=== PATIENT | male | born 1970 | race Caucasian/White ===

== ENCOUNTER 2018-06-11 07:27 | Day surgery (SDC) | payer MEDICAID ==
[~2018-06-11] VITALS: Ht 170.2 cm; Wt 58.1 kg
[~2018-06-11 07:27] MED LIST: ALBUTEROL SULF8.5 GM INH; ANORO ELLIPTA1 EACH INH; FLUTICASONE PRO16 GM NASAL
[2018-06-11 07:52] LABS: HEMATOCRIT 43.8 % (42.0-54.0); HEMOGLOBIN 14.5 g/dL (13.5-17.5); MCH 32.6 pg (26.0-34.0); MCHC 33.1 g/dL (31.0-37.0); MCV 98.4 fL (80.0-100.0); MEAN PLATELET VOLUME 10.9 fL (7.4-10.4); RBC 4.45 10x6/uL (4.20-6.10); RDW 13.3 % (11.5-14.5); WBC 5.7 10x3/uL (4.8-10.8)
[2018-06-11 08:06] LABS: APTT 28.9 SECONDS (22.8-39.4); INR 0.97 (0.85-1.17); PROTIME 12.4 SECONDS (11.6-15.0)
[2018-06-11 08:10] LABS: ALBUMIN 3.5 g/dL (3.4-5.0); ALKALINE PHOSPHATASE 71 U/L (46-116); ALT (SGPT) 49 U/L (10-68); BILIRUBIN - TOTAL 0.37 mg/dL (0.2-1.3); CALC OSMOLALITY 283 mosm/kg (275-300); CALCIUM 8.7 mg/dL (8.5-10.1); CARBON DIOXIDE 26.9 mmol/L (21.0-32.0); CHLORIDE - SERUM 107 mmol/L (98-107); CREATININE - SERUM 0.8 mg/dL (0.6-1.3); GLUCOSE 107 mg/dL (74-106); POTASSIUM - SERUM 4.6 mmol/L (3.5-5.1); PROTEIN - SERUM 6.9 g/dL (6.4-8.2); SODIUM 143 mmol/L (136-145); UREA NITROGEN 9 mg/dL (7-18); eGFR NON AFRICAN AMERICAN > 90 mL/min (90-120)
[2018-06-11 08:28] VITALS: BP 113/67; Ht 170.2 cm; Wt 58.1 kg
--- NOTE | 2018-06-11 11:13 | NUR ---
1110: UNABLE TO REACH FAMILY EXT [id number]
[2018-06-11] MEDS ORDERED: FLOMAX0.4 MG PO (11:57)
[2018-06-11] MEDS ORDERED: FUROSEMIDE20 MG PO (11:57)
[2018-06-11] MEDS ORDERED: HYDROCODON-ACE1 EAC7 PO (11:57)
[2018-06-11] MEDS ORDERED: MIRALAX17 GM PO (11:58)
--- NOTE | 2018-06-11 13:03 | NUR ---
1255 ICE PROVIDED TO ABDOMEN.
== END 2018-06-11 16:40 | disposition home or self-care (01) ==
LOC: D.OPS 07:27 → D.PAN 10:15 → D.OPS 10:15
PROVIDERS: Anesthesiology; ATTEND Surgery
DX: K40.20 Bilateral inguinal hernia, without obstruction or gangrene, not specified as recurrent (principal); J44.9 Chronic obstructive pulmonary disease, unspecified; F17.200 Nicotine dependence, unspecified, uncomplicated; Z01.812 Encounter for preprocedural laboratory examination

== ENCOUNTER 2019-03-20 14:15 | Inpatient (IN) | payer OTHER ==
[~2019-03-20] VITALS: Ht 175.3 cm; Wt 59.0 kg
[~2019-03-20 14:15] MED LIST changes: +FLOMAX0.4 MG PO; +FUROSEMIDE20 MG PO; +HYDROCODON-ACE1 EAC7 PO; +MIRALAX17 GM PO
[2019-03-20] MEDS ORDERED: MEDROL4 MG PO (14:28)
[2019-03-20] MEDS ORDERED: UNK ABX PO (14:29)
--- NOTE | 2019-03-20 14:57 | NUR ---
BLOOD TO LAB
[2019-03-20 15:18] LABS: INR 1.01 (0.85-1.17); PROTIME 12.8 SECONDS (11.6-15.0)
[2019-03-20 15:20] LABS: CALC OSMOLALITY 287 mosm/kg (275-300); CALCIUM 9.1 mg/dL (8.5-10.1); CARBON DIOXIDE 28.9 mmol/L (21.0-32.0); CHLORIDE - SERUM 103 mmol/L (98-107); GLUCOSE 141 mg/dL (74-106); POTASSIUM - SERUM 3.5 mmol/L (3.5-5.1); SODIUM 142 mmol/L (136-145); UREA NITROGEN 22 mg/dL (7-18); eGFR NON AFRICAN AMERICAN 84 mL/min (90-120)
[2019-03-20 15:23] LABS: BASOPHILS 0 % (0-2); EOSINOPHILS 0.2 % (0-7); HEMOGLOBIN 14.4 g/dL (13.5-17.5); IMMATURE GRANULOCYTES 0.2 % (0-5); LYMPHOCYTES 18.7 % (15-50); MCH 33.4 pg (26.0-34.0); MCHC 34.3 g/dL (31.0-37.0); MCV 97.4 fL (80.0-100.0); MEAN PLATELET VOLUME 10.7 fL (7.4-10.4); MONOCYTES 5.4 % (2-11); NEUTROPHILS 75.5 % (40-80); RBC 4.31 10x6/uL (4.20-6.10); RDW 13.6 % (11.5-14.5)
[2019-03-20 15:24] LABS: PLATELET COUNT 220 10x3/uL (130-400)
[2019-03-20 15:36] LABS: ALBUMIN 3.6 g/dL (3.4-5.0); ALKALINE PHOSPHATASE 65 U/L (46-116); ALT (SGPT) 45 U/L (10-68); BILIRUBIN - TOTAL 0.38 mg/dL (0.2-1.3); CKMB 7.4 U/L (0.0-3.6); CREATINE KINASE 297 UL (21-232); PRO BNP 54 pg/mL (0-125); PROTEIN - SERUM 7.3 g/dL (6.4-8.2)
[2019-03-20 15:37] LABS: TROPONIN-I < 0.017 ng/mL (0.000-0.060)
--- NOTE | 2019-03-20 16:42 | NUR ---
WAITING ON BLOOD CULTURES TO START ANTIBIOTICS. PT GETTING ANOTHER RT TX AT THIS TIME.
[2019-03-20] MEDS ORDERED: ZOLOFT50 MG PO (18:29)
[2019-03-20] MEDS ORDERED: WELLBUTRIN SR150 MG PO (18:29)
--- NOTE | 2019-03-20 18:35 | NUR ---
REC'D TO ROOM 2233 AWAKE AND ALERT. RESP EVEN AND UNLABORED WITH NO DISTRESS NOTED. CANE EXPRESS NEEDS AND WANTS. NO C/O NOTED OR VOICE. TURN AND REPOSITION SELF AB KI. IV NOTED TO L FA WHICH IS SL. C/L IN REACH AT BEDSIDE.
--- NOTE | 2019-03-20 19:49 | MORECARE ---
CASE MANAGEMENT DISCHARGE SUMMARY PATIENT: JUDY FOLEY UNIT: [id number] ADM DATE: 03/20/19 AGE: 48 : 68 SEX: M ROOM/BED: D.2233 AUTHOR: FINADOC PHYSICIAN: REFERRING PHYSICIAN: ALBER FLORES MD DATE OF SERVICE: 03/20/19 Discharge Plan Patient Name: JUDY FOLEY Facility: [facility]:[place] : 1970 Planned Disposition: Home Anticipated Discharge Date: 03/23/19 Discharge Date: Expected LOS: 3 Initial Reviewer: [email or web address] Initial Review Date: 03/20/2019 Generated: 03/20/19 8:48 pm DCP- Discharge Planning Updated by [email or web address]: Felicia Dewitt on 03/20/19 6:[address] DC PLAN: Return home with friends. Denied known dc needs. ANTICIPATED DC NEEDS: CM met with patient to complete initial dc planning assessment. CM educated patient on the CM role and verbal consent given by patient to complete assessment. CM verified patient's address, phone number, and emergency contact phone numbers. Patient lives at home with friends. At discharge patient plans to return home and feels this is a safe discharge. CM discussed availability of home health, rehab services, and medical equipment. Patient denied known discharge needs at this time. Transportation provider at discharge will be his boss. Patient does not have oxygen or nebulizer at home. CM will continue to follow and will assist as needed with dc plans/needs. DCPIA - Discharge Planning Initial Assessment Updated by [email or web address]: Felicia Dewitt on 03/20/19 7:44 pm * Is the patient Alert and Oriented? Yes * How many steps to enter\exit or inside your home? 15 * PCP Dr. Flores * Pharmacy [facility] on [address] * Preadmission Environment Home with Family * ADLs Independent * Equipment None * List name and contact numbers for known caregivers / representatives who currently or will assist patient after discharge: Enoch Venegas - brother - [phone] * Verbal permission to speak to the caregivers and representatives has been obtained from the patient. Yes * Community resources currently utilized None * Additional services required to return to the preadmission environment? No * Can the patient safely return to the preadmission environment? Yes * Has this patient been hospitalized within the prior 30 days at any hospital? No Patient Name: JUDY FOLEY Page [id number] at 1950 All edits/amendments must be made on the electronic document DICTATION DATE: 03/20/191947 PRIVATE MORTGAGE BANKER SAFE: LEONARD 03/20/191947 RPT#: [id number] DC DATE: STATUS: ADM IN [facility] [address] [place] [address] END OF REPORT
--- NOTE | 2019-03-20 20:45 | NUR ---
WATCHING TV QUEITLY WITH NO DISTRESS NOTED. O2 @ 2L PER NC ON . RESP UNLABORED. SL TO LFA INTACT WITHOUT REDNESS OR EDEMA NOTED. CL IN REACH
[2019-03-20 21:00] VITALS: BP 110/67
[2019-03-21] VITALS (7 sets, daily range): BP systolic 110–150; BP diastolic 50–84; Ht 175.3 cm; Wt 59.0 kg
--- NOTE | 2019-03-21 07:25 | NUR ---
REC'D IN BED AWAKE AND ALERT. RESP EVEN AND UNLABORED WITH NO DISTRESS NOTED. CAN EXPRESS NEEDS AND WANTS. DENIES ANY NEEDS AT THIS TIME. CONTINUE TO HAVE O2 IN USE VIA N/C. ASSESSMENT COMPLETED. C/L IN REACH AT BEDSIDE.
--- NOTE | 2019-03-21 20:45 | NUR ---
LYING QUIELTY WITH NO COMPLAITNS VOICED. NO DISTRESS NOTED. O2 @ 4L PER NC ON. RESP UNALBORED. CL IN REACH
[2019-03-22 00:42] VITALS: BP 131/74
--- NOTE | 2019-03-22 02:59 | NUR ---
I have reviewed this patient and I concur with the Shift Assessment completed by the Licensed Practical Nurse today this shift.
--- NOTE | 2019-03-22 03:16 | NUR ---
I have reviewed this patient and I concur with the Shift Assessment completed by the Licensed Practical Nurse today this shift.
[2019-03-22 04:48] VITALS: BP 155/78
--- NOTE | 2019-03-22 07:50 | NUR ---
PT RESTING IN BED WITH EYES OPEN, ALERT AND ORIENTED. IV LOCATED TO LEFT FOREARM, CURRENTLY SL. NO S/S OF DISTRESS, AND DENIES NEEDS AT THIS TIME, WILL CONT TO MONITOR.
[2019-03-22 08:02] VITALS: BP 138/92
[2019-03-22 11:36] VITALS: BP 161/85
[2019-03-22 16:57] VITALS: BP 153/84
--- NOTE | 2019-03-22 19:00 | NUR ---
BEDSIDE REPORT RECEIVED AND CARE OF PT ASSUMED. PT LYING IN SUPINE POSITION WITH EYES CLOSED. IV TO LEFT FA PATENT WITH D51/2 NS @ 125 ML/HR. WILL MONITOR FOR NEEDS.
[2019-03-22 20:42] VITALS: BP 145/78
--- NOTE | 2019-03-22 20:45 | NUR ---
HS MEDICATIONS GIVEN. WILL CONTINUE TO MONITOR FOR NEEDS.
[2019-03-23 01:34] VITALS: BP 130/90
[2019-03-23 05:12] VITALS: BP 151/90
[2019-03-23 06:01] LABS: BASOPHILS 0 % (0-2); EOSINOPHILS 0 % (0-7); HEMATOCRIT 40.2 % (42.0-54.0); HEMOGLOBIN 13.5 g/dL (13.5-17.5); IMMATURE GRANULOCYTES 0.5 % (0-5); LYMPHOCYTES 5.5 % (15-50); MCH 33.3 pg (26.0-34.0); MCHC 33.6 g/dL (31.0-37.0); MONOCYTES 4.9 % (2-11); NEUTROPHILS 89.1 % (40-80); PLATELET COUNT 213 10x3/uL (130-400); RBC 4.06 10x6/uL (4.20-6.10); RDW 13.6 % (11.5-14.5); WBC 12.9 10x3/uL (4.8-10.8)
[2019-03-23 06:22] LABS: CALC OSMOLALITY 285 mosm/kg (275-300); CALCIUM 8.9 mg/dL (8.5-10.1); CARBON DIOXIDE 30.9 mmol/L (21.0-32.0); CHLORIDE - SERUM 104 mmol/L (98-107); CREATININE - SERUM 0.6 mg/dL (0.6-1.3); GLUCOSE 166 mg/dL (74-106); SODIUM 141 mmol/L (136-145); UREA NITROGEN 16 mg/dL (7-18); eGFR NON AFRICAN AMERICAN > 90 mL/min (90-120)
--- NOTE | 2019-03-23 07:25 | NUR ---
REC'D IN BED AWAKE AND ALERT. RESP EVEN AND UNLABORED HAS O2 IN USE VIA N/C @ 2L/M. NO C/O PAIN OR DISCOMFORT NOTED OR VOICED. ASSESSMENT COMPLETED. C/L IN REACH AT BEDSIDE.
[2019-03-23 07:44] VITALS: BP 139/80
[2019-03-23 11:52] VITALS: BP 121/79
--- NOTE | 2019-03-23 13:49 | NUR ---
I have reviewed this patient and I concur with the Shift Assessment completed by the Licensed Practical Nurse today this shift.
[2019-03-23 17:04] VITALS: BP 158/85
[2019-03-23 21:08] VITALS: BP 151/80
[2019-03-24 01:05] VITALS: BP 166/88
[2019-03-24 04:38] VITALS: BP 130/80
--- NOTE | 2019-03-24 07:17 | NUR ---
I have reviewed this patient and I concur with the Shift Assessment completed by the Licensed Practical Nurse today this shift.
--- NOTE | 2019-03-24 07:30 | NUR ---
REC'D IN ROOM IN BED AWAKE AND ALERT. RESP EVEN AND UNLABORED WITH NO DISTRESS NOTED. CAN EXPRESS NEEDS AND WANTS. NO C/O NOTED OR VOICED. ASSESSMENT COMPLETED. C/L IN REACH AT BEDSIDE.
[2019-03-24 08:37] VITALS: BP 165/97
--- NOTE | 2019-03-24 10:43 | NUR ---
I have reviewed this patient and I concur with the Shift Assessment completed by the Licensed Practical Nurse today this shift.
[2019-03-24 13:27] VITALS: BP 174/78
[2019-03-24] MEDS ORDERED: PULMICORT0.25 MG/1 INH (13:51)
[2019-03-24] MEDS ORDERED: Tessalon Perle PO (13:53)
[2019-03-24] MEDS ORDERED: MUCINEX600 MG PO (13:53)
[2019-03-24] MEDS ORDERED: SINGULAIR10 MG PO (13:53)
[2019-03-24] MEDS ORDERED: PREDNISONE20 MG PO (13:56)
--- NOTE | 2019-03-24 14:31 | NUR ---
Nutrition Follow-up: Diet: Cardiac 1500cal 2gm NA PO intake: 75-100% x all meals; he reports a good appetite. He likes strawberry and vanilla Ensure. No BM recorded since admit. WT: 130# (03/21/19) Significant meds: solu-medrol and IV abx. Labs noted: Glu 166mg/dL Consider liberalizing diet to Regular. RD following.
--- NOTE | 2019-03-24 14:52 | MORECARE ---
CASE MANAGEMENT DISCHARGE SUMMARY PATIENT: JUDY FOLEY UNIT: [id number] ADM DATE: 03/20/19 AGE: 48 : 68 SEX: M ROOM/BED: D.2233 AUTHOR: FINADOC PHYSICIAN: REFERRING PHYSICIAN: ALBER FLORES MD DATE OF SERVICE: 03/24/19 Discharge Plan Patient Name: JUDY FOLEY Facility: [facility]:[place] : 1970 Planned Disposition: Home Anticipated Discharge Date: 03/23/19 Discharge Date: Expected LOS: 3 Initial Reviewer: [email or web address] Initial Review Date: 03/20/2019 Generated: 03/24/19 3:52 pm Comments DCP- Discharge Planning Updated by [email or web address]: France Rojas on 03/24/19 1:[address] Discharge orders received. He states he has someone from "his program" picking him up. He has Rx that will need filled. I called his pharmacy and his prednisone has 0 copay. He is a managed Medicaid, so his medications should be covered by insurance. Managed Medicaid does not require "slots to be opened." DCP- Discharge Planning Updated by [email or web address]: Felicia Dewitt on 03/20/19 6:[address] DC PLAN: Return home with friends. Denied known dc needs. ANTICIPATED DC NEEDS: CM met with patient to complete initial dc planning assessment. CM educated patient on the CM role and verbal consent given by patient to complete assessment. CM verified patient's address, phone number, and emergency contact phone numbers. Patient lives at home with friends. At discharge patient plans to return home and feels this is a safe discharge. CM discussed availability of home health, rehab services, and medical equipment. Patient denied known discharge needs at this time. Transportation provider at discharge will be his boss. Patient does not have oxygen or nebulizer at home. CM will continue to follow and will assist as needed with dc plans/needs. DCPIA - Discharge Planning Initial Assessment Updated by [email or web address]: Felicia Dewitt on 03/20/19 7:44 pm * Is the patient Alert and Oriented? Yes * How many steps to enter\\exit or inside your home? 15 * PCP Dr. Flores * Pharmacy [facility] [address] * Preadmission Environment Home with Family * ADLs Independent * Equipment None * List name and contact numbers for known caregivers / representatives who currently or will assist patient after discharge: Enoch Venegas - brother - [phone] * Verbal permission to speak to the caregivers and representatives has been obtained from the patient. Yes * Community resources currently utilized None * Additional services required to return to the preadmission environment? No * Can the patient safely return to the preadmission environment? Yes * Has this patient been hospitalized within the prior 30 days at any hospital? No Last DP export: 03/20/19 6:49 p Patient Name: JUDY FOLEY Page [id number] at 1452 All edits/amendments must be made on the electronic document DICTATION DATE: 03/24/191451 RN INVASIVE: LEONARD 03/24/191451 RPT#: [id number] DC DATE: STATUS: ADM IN [facility] [address] [place] [address] END OF REPORT
--- NOTE | 2019-03-24 16:02 | NUR ---
DC HOME AT THIS TIME VOICE UNDERSTANDING OF DC INSTRUCTION. IV DC WITH TIP INTACT.
--- NOTE | 2019-03-25 16:28 | MORECARE ---
CASE MANAGEMENT DISCHARGE SUMMARY PATIENT: JUDY FOLEY UNIT: [id number] ADM DATE: 03/20/19 AGE: 48 : 68 SEX: M ROOM/BED: D.2233 AUTHOR: FINA,DOC PHYSICIAN: REFERRING PHYSICIAN: ALBER FLORES MD DATE OF SERVICE: 03/25/19 Discharge Plan Patient Name: JUDY FOLEY Facility: [facility]:[place] : 1970 Planned Disposition: Home Anticipated Discharge Date: 03/23/19 Discharge Date: 03/24/2019 Expected LOS: 3 Initial Reviewer: [email or web address] Initial Review Date: 03/20/2019 Generated: 03/25/19 5:28 pm Comments DCP- Discharge Planning Updated by [email or web address]: France Rojas on 03/24/19 1:[address] Discharge orders received. He states he has someone from "his program" picking him up. He has Rx that will need filled. I called his pharmacy and his prednisone has 0 copay. He is a managed Medicaid, so his medications should be covered by insurance. Managed Medicaid does not require "slots to be opened." DCP- Discharge Planning Updated by [email or web address]: Felicia Dewitt on 03/20/19 6:[address] DC PLAN: Return home with friends. Denied known dc needs. ANTICIPATED DC NEEDS: CM met with patient to complete initial dc planning assessment. CM educated patient on the CM role and verbal consent given by patient to complete assessment. CM verified patient's address, phone number, and emergency contact phone numbers. Patient lives at home with friends. At discharge patient plans to return home and feels this is a safe discharge. CM discussed availability of home health, rehab services, and medical equipment. Patient denied known discharge needs at this time. Transportation provider at discharge will be his boss. Patient does not have oxygen or nebulizer at home. CM will continue to follow and will assist as needed with dc plans/needs. DCPIA - Discharge Planning Initial Assessment Updated by [email or web address]: Felicia Dewitt on 03/20/19 7:44 pm * Is the patient Alert and Oriented? Yes * How many steps to enter\\exit or inside your home? 15 * PCP Dr. Flores * Pharmacy [facility] [address] * Preadmission Environment Home with Family * ADLs Independent * Equipment None * List name and contact numbers for known caregivers / representatives who currently or will assist patient after discharge: Enoch Venegas - brother - [phone] * Verbal permission to speak to the caregivers and representatives has been obtained from the patient. Yes * Community resources currently utilized None * Additional services required to return to the preadmission environment? No * Can the patient safely return to the preadmission environment? Yes * Has this patient been hospitalized within the prior 30 days at any hospital? No Last DP export: 03/24/19 1:52 Patient Name: JUDY FOLEY Page [id number] at 1628 All edits/amendments must be made on the electronic document DICTATION DATE: 03/25/191627 ROOF PANEL HANGER: LEONARD 03/25/191627 RPT#: [id number] DC DATE:03/24/19 STATUS: DIS IN [facility] [address] [place] [address] END OF REPORT
== END 2019-03-24 16:03 | disposition home or self-care (01) | DRG 192 ==
LOC: D.ER 14:15 → D.MS 16:14
PROVIDERS: Emergency Medicine; Family Medicine; ADMIT Family Medicine; ATTEND Family Medicine
DX: J44.1 Chronic obstructive pulmonary disease with (acute) exacerbation (principal); M19.90 Unspecified osteoarthritis, unspecified site; M54.9 Dorsalgia, unspecified